=== PATIENT | male | born 1995 | race African-American/Black ===

== ENCOUNTER 2017-07-08 23:13 | Emergency (ER) | payer MEDICAID ==
[~2017-07-08] VITALS: Ht 180.3 cm; Wt 85.0 kg
[2017-07-08 23:15] VITALS: BP 130/64; PULSE 67; RESP 16; TEMP 98.3; O2SAT 100
--- NOTE | 2017-07-08 23:41 | PD ---
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 TETANUS UP TO DATE PMHX: DENIES PSHX: DENIES PFSH Past Medical History Medical History: Denies Significant Hx Diminished Hearing: No Tetanus Vaccination: Unknown Past Surgical History Abdominal Surgery: Yes (as a child pt unsure for what) Social History Alcohol Use: No Tobacco Use: No Substance Use: No Allergies-Medications (Allergen,Severity, Reaction): Coded Allergies: No Known Allergies (Unverified , 07/08/17) Review of Systems Except as stated in HPI: all other systems reviewed are Neg Skin: Positive Other (LAC TO LEFT THUMB) Physical Exam Narrative GENERAL: SKIN: Warm and dry. NEAR LEFT DIP ON DORSAL ASPECT HAS 1.5CM LAC, NOT INVOLVING TENDONS/ AND NVI. HEAD: Atraumatic. Normocephalic. EYES: Pupils equal and round. No scleral icterus. No injection or drainage. ENT: No nasal bleeding or discharge. Mucous membranes pink and moist. NECK: Trachea midline. No JVD. CARDIOVASCULAR: Regular rate and rhythm. RESPIRATORY: No accessory muscle use. Clear to auscultation. Breath sounds equal bilaterally. GASTROINTESTINAL: Abdomen soft, non-tender, nondistended. Hepatic and splenic margins not palpable. MUSCULOSKELETAL: Extremities without clubbing, cyanosis, or edema. No obvious deformities. NEUROLOGICAL: Awake and alert. No obvious cranial nerve deficits. Motor grossly within normal limits. Five out of 5 muscle strength in the arms and legs. Normal speech. PSYCHIATRIC: Appropriate mood and affect; insight and judgment normal. Data Data Last Documented VS Vital Signs Date Time Temp Pulse Resp B/P (MAP) Pulse Ox O2 Delivery O2 Flow Rate FiO2 07/09/17 00:14 07/08/17 23:15 98.3 67 16 100 Room Air Orders Orders Ed Discharge Order (07/09/17 00:09) MDM Medical Decision Making Medical Screen Exam Complete: Yes Emergency Medical Condition: Yes Medical Record Reviewed: Yes Differential Diagnosis SUPERFICIAL LAC V TENDON INJURY V NEUROVASCULAR SYMPTOMS Narrative Course AFTER A THOROUGH EVALUATION NO EVIDENCE OF TENDON, NERVE INJURY OR VASCULAR INJURY.. Procedures Procedure Narrative LACERATION LOCATION: [LEFT PALMAR ASPECT OF LEFT THUMB NEAR DIP] LENGTH: [1.5CM] NUMBER OF STITCHES/MARYLOU: [N/A-] REPAIR: The area of the laceration was prepped with Betadine and sterilely draped. The laceration was NOT infiltrated . The wound was copiously irrigated and explored without evidence of foreign body, tendon injury or neurovascular injury. The wound was closed using DERMABOND. A sterile dressing was applied. The patient was advised to keep the dressing clean and dry. Patient tolerated the procedure well. Diagnosis Primary Impression: LEFT THUMB LACERATION S/P DERMABOND REPAIR Patient Instructions: General Instructions, Skin Adhesive Care (ED) Disposition: 01 DISCHARGE HOME Condition: Stable Juanpablo Le MD Jul 08, 2017 23:41
== END 2017-07-09 00:21 | disposition home or self-care (01) ==
LOC: NEPD 23:13
DX: S61.012A Laceration without foreign body of left thumb without damage to nail, initial encounter (principal); W26.0XXA Contact with knife, initial encounter
CPT/HCPCS: 12001